=== PATIENT | female | born 1990 | race American Indian/Alaskan Native ===

== ENCOUNTER 2017-03-06 14:20 | Outpatient (CLI) | payer OTHER ==
--- NOTE | 2017-03-07 07:45 | XRay Report ---
RIGHT KNEE, 4 views: HISTORY: Right knee pain. The bony architecture is intact without evidence of fracture or dislocation. A calista hole is identified in the distal femoral metaphysis and possibly the patella suggesting previous surgical changes. Please correlate with history. Mild retropatellar spurring is suspected inferiorly. No significant soft tissue abnormality is seen. IMPRESSION: Surgical changes. Mild retropatellar spurring. No acute process noted.
== END 2017-03-06 14:21 | disposition home or self-care (01) ==
LOC: SPVIMAG 14:20
PROVIDERS: ATTEND Orthopaedic Surgery
DX: M25.861 Other specified joint disorders, right knee (principal); M25.561 Pain in right knee